=== PATIENT | male | born 1975 | race Hispanic/Latino ===

== ENCOUNTER 2021-02-05 13:07 | Day surgery (SDC) | payer OTHER ==
[~2021-02-05] VITALS: Ht 182.9 cm; Wt 73.9 kg
[~2021-02-05 13:07] MED LIST: RIZA5TAB2 PO
[2021-02-05] MEDS: NS 1,000 ML IV SCH (13:37)
[2021-02-05] MEDS ORDERED: LIDOCAINE 2% MDV 20ML VIAL As Ordered ONE (15:05)
[2021-02-05] MEDS ORDERED: propofoL 200 MG/20 ML VIAL As Ordered ONE (15:05)
[2021-02-05] MEDS ORDERED: fentaNYL 100 MCG/2 ML INJECTION (J3010) As Ordered ONE (15:06)
--- NOTE | 2021-02-05 15:30 | ROOR ---
Patient Name: Madi Fernandes Procedure Date: 02/05/2021 3:07 PM Date of : 1975 Age: 45 Room: [facility] Gender: Male Note Status: Finalized Procedure: Upper Endoscopy + Biopsies + Balloon Dilatation Indications: Dysphagia, Heartburn Providers: Lawrence Echeverria MD Referring MD: JACLYN ANAYA MD Requesting Provider: Medicines: Monitored Anesthesia Care Complications: No immediate complications. Procedure: Pre-Anesthesia Assessment: - The heart rate, respiratory rate, oxygen saturations, blood pressure, adequacy of pulmonary ventilation, and response to care were monitored throughout the procedure. The Endoscope was introduced through the mouth, and advanced to the second part of duodenum. The upper GI endoscopy was accomplished without difficulty. The patient tolerated the procedure well. Findings: The Z-line was regular and was found 40 cm from the incisors. Mucosal changes including ringed esophagus were found in the lower third of the esophagus. Biopsies were taken with a cold forceps for histology. A TTS dilator was passed through the scope. Dilation with a 15-16.5-18 mm balloon dilator was performed to 18 mm. A TTS dilator was passed through the scope. Dilation with a 12-13.5-15 mm balloon dilator was performed to 15 mm. The dilation site was examined and showed no change. A small hiatal hernia was present. No other significant abnormalities were identified in a careful examination of the stomach. The exam of the duodenum was otherwise normal. Impression: - Z-line regular, 40 cm from the incisors. - Esophageal mucosal changes suggestive of eosinophilic esophagitis. Biopsied. Dilated. - Small hiatal hernia. - The examination was otherwise normal. Recommendation: - Patient has a contact number available for emergencies. The signs and symptoms of potential delayed complications were discussed with the patient. Return to normal activities tomorrow. Written discharge instructions were provided to the patient. - High fiber diet. - Discharge patient to home. - Follow an antireflux regimen. - Continue present medications. - Await pathology results. - Telephone GI clinic for pathology results in 1 week. - Repeat upper endoscopy for surveillance based on pathology results. - Return to referring physician. - Return to GI office in 6 weeks. - The findings and recommendations were discussed with the patient. Procedure Code(s): --- Professional --- 63183, Esophagogastroduodenoscopy, flexible, transoral; with transendoscopic balloon dilation of esophagus (less than 30 mm diameter) Diagnosis Code(s): --- Professional --- K22.8, Other specified diseases of esophagus K44.9, Diaphragmatic hernia without obstruction or gangrene R13.10, Dysphagia, unspecified R12, Heartburn CPT copyright 2019 [employer]. All rights reserved. The codes documented in this report are preliminary and upon classroom aide review may be revised to meet current compliance requirements. Lawrence Echeverria MD Lawrence Echeverria MD 02/05/2021 3:30:17 PM Electronically signed by Lawrence Echeverria MD Number of Addenda: 0 Note Initiated On: 02/05/2021 3:07 PM Estimated Blood Loss: Estimated blood loss: none.
[2021-02-05] MEDS ORDERED: SIMETHICONE 40MG/0.6ML DROPS 30ML As Ordered ONE (15:34)
[2021-02-05 15:45] VITALS: BP 120/76
== END 2021-02-05 15:50 | disposition home or self-care (01) ==
LOC: M OPP 13:07
PROVIDERS: ATTEND Internal Medicine Gastroenterology
DX: K22.8 Other specified diseases of esophagus (principal); K44.9 Diaphragmatic hernia without obstruction or gangrene; R13.10 Dysphagia, unspecified; R12 Heartburn
CPT/HCPCS: 43239; 43249; 88305; J3010

== ENCOUNTER 2022-02-26 17:26 | Emergency (ER) | payer OTHER ==
[~2022-02-26] VITALS: Ht 182.9 cm; Wt 78.5 kg
[2022-02-26] MEDS ORDERED: RIZATRIPTAN BENZOATE 10 MG TAB PO STA (21:32)
[2022-02-26] MEDS ORDERED: KETOROLAC 60MG 2ML VIAL IM ONE (21:35)
[2022-02-26] MEDS ORDERED: METHOCARBAMOL 1,000 MG/10 ML VIAL (J2800) IM ONE ×2 (21:35→21:40)
[2022-02-26 22:53] VITALS: BP 130/86
[2022-02-26] MEDS ORDERED: METH-1165 PO (22:58)
== END 2022-02-26 23:04 | disposition home or self-care (01) ==
LOC: M ED 17:26
DX: G89.29 Other chronic pain (principal); M54.9 Dorsalgia, unspecified; F43.10 Post-traumatic stress disorder, unspecified
CPT/HCPCS: 96372; 99283; J1885; J2800

== ENCOUNTER → 2022-03-03 | Outpatient (CLI) | payer OTHER ==
[~2022-03-03] MED LIST changes: +METH-1165 PO
== END ==
LOC: M SOG 07:50
PROVIDERS: ATTEND Orthopaedic Surgery Hand Surgery
DX: G56.03 Carpal tunnel syndrome, bilateral upper limbs (principal)

== ENCOUNTER 2022-04-08 23:33 | Emergency (ER) | payer OTHER ==
[~2022-04-08] VITALS: Ht 185.4 cm; Wt 75.0 kg
[2022-04-08 23:52] VITALS: BP 120/90
[2022-04-09] MEDS ORDERED: LIDOCAINE 1% MDV 20ML VIAL As Ordered ONE (00:56)
== END 2022-04-09 02:40 | disposition home or self-care (01) ==
LOC: M ED 23:33
DX: S51.811A Laceration without foreign body of right forearm, initial encounter (principal); W25.XXXA Contact with sharp glass, initial encounter; R51.9 Headache, unspecified; M54.9 Dorsalgia, unspecified; F43.10 Post-traumatic stress disorder, unspecified; Z79.899 Other long term (current) drug therapy

== ENCOUNTER → 2022-05-06 | Outpatient (REF) | LOC: M PLAIMG 12:55 | PROVIDERS: ATTEND Internal Medicine | DX: R52 Pain, unspecified (principal); R06.02 Shortness of breath ==

== ENCOUNTER → 2022-10-30 | Outpatient (CLI) | payer OTHER | LOC: M PLAIMG 12:56 | PROVIDERS: ATTEND Ophthalmology | DX: H05.20 Unspecified exophthalmos (principal) ==